=== PATIENT | female | born 1970 | race Hispanic/Latino ===

== ENCOUNTER 2018-02-22 10:19 | Outpatient (CLI) | payer OTHER ==
--- NOTE | 2018-02-22 11:40 | MMO ---
BILATERAL SCREENING MAMMOGRAPHY: Date: 02/22/2018 COMPARISON: 09/24/2015 and 05/16/2013. HISTORY: Screening. FINDINGS: The patient's mammogram is interpreted with the assistance of computer-aided detection. The breast parenchyma is heterogeneously dense, limiting mammographic sensitivity. There is no dominant mass or architectural distortion. No concerning microcalcifications. IMPRESSION: BIRADS 1 - Negative. Recommend annual screening mammography. POS: ESTRELLA
== END 2018-02-22 10:20 | disposition home or self-care (01) ==
LOC: SCSMAMMO 10:19
PROVIDERS: ATTEND Family Medicine
DX: Z12.31 Encounter for screening mammogram for malignant neoplasm of breast (principal)
CPT/HCPCS: 77067

== ENCOUNTER 2019-04-04 10:12 | Outpatient (CLI) | payer OTHER ==
--- NOTE | 2019-04-04 11:04 | MMO ---
Bilateral MAMMO Bilat Screen [facility]. CLINICAL HISTORY: Patient is 48 years old and is seen for screening. The patient has no family history of breast cancer. The patient has no personal history of cancer. VIEWS: The views performed were: bilateral craniocaudal and bilateral mediolateral oblique. FILMS COMPARED: The present examination has been compared to prior imaging studies performed at [facility] [place] on 05/16/2013, 09/23/2015 and 02/22/2018. This study has been interpreted with the assistance of computer-aided detection. MAMMOGRAM FINDINGS: The breasts are heterogeneously dense, which could obscure a lesion on mammography. There are no suspicious masses, suspicious calcifications, or new areas of architectural distortion. IMPRESSION: THERE IS NO MAMMOGRAPHIC EVIDENCE OF MALIGNANCY. A ROUTINE FOLLOW-UP MAMMOGRAM IN 1 YEAR IS RECOMMENDED. ACR BI-RADS Category 1 - Negative MAMMOGRAPHY NOTE: 1. A negative mammogram report should not delay a biopsy if a dominant of clinically suspicious mass is present. 2. Approximately 10% to 15% of breast cancers are not detected by mammography. 3. Adenosis and dense breasts may obscure an underlying neoplasm.
== END 2019-04-04 10:13 | disposition home or self-care (01) ==
LOC: SCSMAMMO 10:12
PROVIDERS: ATTEND Family Medicine
DX: Z12.31 Encounter for screening mammogram for malignant neoplasm of breast (principal)
CPT/HCPCS: 77067

== ENCOUNTER 2022-09-29 10:34 | Outpatient (CLI) | payer OTHER | END 2022-09-29 10:35 | disposition home or self-care (01) | LOC: BICMAMMO 10:34 | PROVIDERS: ATTEND Family Medicine | DX: Z12.31 Encounter for screening mammogram for malignant neoplasm of breast (principal) | CPT/HCPCS: 77063; 77067 ==